=== PATIENT | male | born 1995 | race Hispanic/Latino ===

== ENCOUNTER 2021-09-02 19:45 | Emergency (ER) | payer SELFPAY ==
[~2021-09-02] VITALS: Ht 154.9 cm; Wt 72.0 kg
[2021-09-02] MEDS ORDERED: HUMALOG100 UNIT/M SC (20:09)
[2021-09-02] MEDS ORDERED: NOVOLIN N100 UNIT (20:09)
[2021-09-02 20:37] LABS: HEMATOCRIT 43.4 % (39.0-50.0); HEMOGLOBIN 15.1 g/dl (14.0-18.0); MEAN CELL VOLUME 90.6 fL CALC (80.0-100.0); MEAN CORPUSCULAR HGB 31.5 pG CALC (26.0-32.0); MEAN CORPUSCULAR HGB CONC 34.8 g/dL CAL (32.0-36.0); NEUT# 2.55 thou/uL (1.82-7.42); RED BLOOD COUNT 4.79 mill/uL (4.70-6.10); RED CELL DISTRI WIDTH 11.7 % (11.5-15.5)
[2021-09-02 20:38] LABS: URINE BILIRUBIN - DIPSTICK NEGATIVE (NEGATIVE); URINE BLOOD DIPSTICK NEGATIVE (NEGATIVE); URINE COLOR YELLOW; URINE GLUCOSE - DIPSTICK 250 mg/dL (NEGATIVE); URINE KETONE NEGATIVE (NEGATIVE); URINE LEUK ESTERASE NEGATIVE (NEGATIVE); URINE PROTEIN - DIPSTICK NEGATIVE (NEG-TRACE); URINE SPECIFIC GRAVITY <=1.005; URINE UROBILINOGEN - DIPSTICK 0.2 E.U./dL (0.2)
[2021-09-02 20:42] LABS: URINE NITRITE - DIPSTICK NEGATIVE (Negative)
[2021-09-02 20:53] LABS: ALKALINE PHOSPHATASE 126 u/l (38-126); ANION GAP 11 (6-22 (CALC)); BUN 17 mg/dL (9-20); BUN/CREATININE RATIO 26 (12-20 (CALC)); CARBON DIOXIDE 34 mmol/l (22-30); CHLORIDE 93 mmol/l (95-108); CREATININE 0.7 mg/dL (0.7-1.3); GFR > 60 ML/MIN (>=60 (CALC)); GFR FOR AFR.AMER. > 60 ML/MIN (>=60 (CALC)); POTASSIUM 3.6 mmol/l (3.5-5.1); SGOT/AST 49 u/l (17-59); SODIUM 134 mmol/l (137-146); TOTAL PROTEIN 6.9 g/dL (6.3-8.2)
[2021-09-02] MEDS ORDERED: NAPROXEN500 MG PO (21:15)
[2021-09-02 21:35] VITALS: BP 120/81
== END 2021-09-02 21:40 | disposition home or self-care (01) | DRG 74 ==
LOC: ED 19:45
PROVIDERS: Emergency Medicine
DX: E11.42 Type 2 diabetes mellitus with diabetic polyneuropathy (principal); Z79.4 Long term (current) use of insulin

== ENCOUNTER 2021-09-14 20:05 | Emergency (ER) | payer SELFPAY ==
[~2021-09-14] VITALS: Ht 154.9 cm; Wt 65.0 kg
[~2021-09-14 20:05] MED LIST: HUMALOG100 UNIT/M SC; NAPROXEN500 MG PO; NOVOLIN N100 UNIT
[2021-09-14 21:42] LABS: HEMATOCRIT 42.1 % (39.0-50.0); HEMOGLOBIN 14.8 g/dl (14.0-18.0); MEAN CELL VOLUME 87.2 fL CALC (80.0-100.0); MEAN CORPUSCULAR HGB 30.6 pG CALC (26.0-32.0); MEAN CORPUSCULAR HGB CONC 35.2 g/dL CAL (32.0-36.0); NEUT# 2.62 thou/uL (1.82-7.42); RED BLOOD COUNT 4.83 mill/uL (4.70-6.10); RED CELL DISTRI WIDTH 11.8 % (11.5-15.5)
[2021-09-14 22:13] LABS: ALBUMIN 3.8 g/dL (3.2-5.0); ALKALINE PHOSPHATASE 120 u/l (38-126); ANION GAP 8 (6-22 (CALC)); BILIRUBIN, TOTAL 0.7 mg/dL (0.0-1.4); BUN 26 mg/dL (9-20); BUN/CREATININE RATIO 39 (12-20 (CALC)); CARBON DIOXIDE 35 mmol/l (22-30); CHLORIDE 95 mmol/l (95-108); CREATININE 0.7 mg/dL (0.7-1.3); GFR > 60 ML/MIN (>=60 (CALC)); GFR FOR AFR.AMER. > 60 ML/MIN (>=60 (CALC)); LIPASE 149 u/l (23-300); POTASSIUM 3.4 mmol/l (3.5-5.1); SGOT/AST 73 u/l (17-59); SODIUM 136 mmol/l (137-146); TOTAL PROTEIN 6.7 g/dL (6.3-8.2)
[2021-09-14 22:22] LABS: MAGNESIUM 0.8 mg/dL (1.6-2.3)
[2021-09-14 22:43] LABS: TSH, 3RD GENERATION 1.85 uIU/mL (0.47 - 4.68)
[2021-09-15] MEDS ORDERED: NEURONTIN300 MG PO (01:38)
[2021-09-15] MEDS ORDERED: MAGNESIUM OXID500 M1 PO (01:38)
[2021-09-15 01:43] VITALS: BP 122/80
== END 2021-09-15 02:21 | disposition home or self-care (01) | DRG 74 ==
LOC: ED 20:05
PROVIDERS: Emergency Medicine
DX: E11.42 Type 2 diabetes mellitus with diabetic polyneuropathy (principal); E83.42 Hypomagnesemia; Z79.4 Long term (current) use of insulin; Z91.14 Patient's other noncompliance with medication regimen
CPT/HCPCS: J3475

== ENCOUNTER 2021-09-24 21:09 | Emergency (ER) | payer SELFPAY ==
[~2021-09-24 21:09] MED LIST changes: +MAGNESIUM OXID500 M1 PO; +NEURONTIN300 MG PO
[2021-09-24 22:09] LABS: ANION GAP 9 (6-22 (CALC)); BUN 23 mg/dL (9-20); BUN/CREATININE RATIO 29 (12-20 (CALC)); CARBON DIOXIDE 33 mmol/l (22-30); CHLORIDE 97 mmol/l (95-108); CREATININE 0.8 mg/dL (0.7-1.3); GFR > 60 ML/MIN (>=60 (CALC)); GFR FOR AFR.AMER. > 60 ML/MIN (>=60 (CALC)); POTASSIUM 3.8 mmol/l (3.5-5.1); SODIUM 136 mmol/l (137-146)
[2021-09-24] MEDS ORDERED: HUMALOG100 UNIT/M SC (22:42)
[2021-09-24 22:56] VITALS: BP 140/84
== END 2021-09-24 22:56 | disposition home or self-care (01) | DRG 639 ==
LOC: ED 21:09
PROVIDERS: Family Medicine
DX: E11.65 Type 2 diabetes mellitus with hyperglycemia (principal); E83.42 Hypomagnesemia; E11.40 Type 2 diabetes mellitus with diabetic neuropathy, unspecified; T38.3X6A Underdosing of insulin and oral hypoglycemic [antidiabetic] drugs, initial encounter; Z79.4 Long term (current) use of insulin; Z91.128 Patient's intentional underdosing of medication regimen for other reason

== ENCOUNTER 2021-10-04 19:31 | Emergency (ER) | payer SELFPAY ==
[~2021-10-04] VITALS: Ht 154.9 cm; Wt 68.0 kg
[2021-10-04] MEDS ORDERED: NEURONTIN300 MG PO (22:11)
[2021-10-04] MEDS ORDERED: ELAVIL25 M1 PO (22:11)
[2021-10-04 22:42] VITALS: BP 125/89
== END 2021-10-04 22:55 | disposition home or self-care (01) | DRG 74 ==
LOC: ED 19:31
DX: E11.42 Type 2 diabetes mellitus with diabetic polyneuropathy (principal); Z79.4 Long term (current) use of insulin

== ENCOUNTER 2021-10-11 00:32 | Emergency (ER) | payer SELFPAY ==
[~2021-10-11] VITALS: Ht 167.6 cm; Wt 74.0 kg
[~2021-10-11 00:32] MED LIST changes: +ELAVIL25 M1 PO
[2021-10-11 01:54] VITALS: BP 130/96
== END 2021-10-11 02:00 | disposition home or self-care (01) | DRG 74 ==
LOC: ED 00:32
DX: E11.42 Type 2 diabetes mellitus with diabetic polyneuropathy (principal); Z79.4 Long term (current) use of insulin

== ENCOUNTER 2022-09-03 23:07 | Emergency (ER) | payer SELFPAY ==
[~2022-09-03] VITALS: Ht 167.6 cm; Wt 75.0 kg
[2022-09-03 23:59] LABS: BASO% 0.5 % (0-3); EOS% 2.7 % (0-8); HEMATOCRIT 44.8 % (39.0-50.0); IMMATURE GRANULOCYTES 0.3 % (0.0-5.0); LYMPH% 39.8 % (15-41); MEAN CELL VOLUME 84.8 fL CALC (80.0-100.0); MEAN CORPUSCULAR HGB CONC 37.7 g/dL CAL (32.0-36.0); MONO% 8.3 % (2-13); NEUT# 2.85 thou/uL (1.82-7.42); NEUT% 48.4 % (42-76); RED BLOOD COUNT 5.28 mill/uL (4.70-6.10); RED CELL DISTRI WIDTH 12.3 % (11.5-15.5)
[2022-09-04 00:07] LABS: HEMOGLOBIN 16.9 g/dl (14.0-18.0)
[2022-09-04 00:11] LABS: ALKALINE PHOSPHATASE 151 u/l (38-126); BILIRUBIN, TOTAL 0.7 mg/dL (0.0-1.4); BUN 21 mg/dL (9-20); BUN/CREATININE RATIO 21 (12-20 (CALC)); CARBON DIOXIDE 35 mmol/l (22-30); GFR FOR AFR.AMER. > 60 ML/MIN (>=60 (CALC)); GFR OTHER RACES > 60 ML/MIN (>=60 (CALC)); POTASSIUM 3.5 mmol/l (3.5-5.1); SGOT/AST 49 u/l (17-59); SODIUM 131 mmol/l (137-146); TOTAL PROTEIN 7.9 g/dL (6.3-8.2)
[2022-09-04 00:22] LABS: ALBUMIN 4.8 g/dL (3.2-5.0); ANION GAP 15 (6-22 (CALC)); CHLORIDE 85 mmol/l (95-108)
[2022-09-04] MEDS ORDERED: MAGNESIUM200 MG PO (01:57)
[2022-09-04 02:10] VITALS: BP 113/65
== END 2022-09-04 03:45 | disposition home or self-care (01) | DRG 641 ==
LOC: ED 23:07
PROVIDERS: Emergency Medicine
DX: E83.42 Hypomagnesemia (principal); E10.65 Type 1 diabetes mellitus with hyperglycemia; Z79.85 Long-term (current) use of injectable non-insulin antidiabetic drugs
CPT/HCPCS: J3475

== ENCOUNTER 2023-09-10 19:56 | Emergency (ER) | payer SELFPAY ==
[~2023-09-10] VITALS: Ht 167.6 cm; Wt 77.0 kg
[~2023-09-10 19:56] MED LIST changes: +MAGNESIUM200 MG PO
[2023-09-10] MEDS ORDERED: TAM75CAP PO (21:34)
[2023-09-10 21:41] VITALS: BP 108/74
== END 2023-09-10 21:41 | disposition home or self-care (01) | DRG 153 ==
LOC: ED 19:56
DX: J11.1 Influenza due to unidentified influenza virus with other respiratory manifestations (principal); E11.9 Type 2 diabetes mellitus without complications; Z79.4 Long term (current) use of insulin; Z20.822 Contact with and (suspected) exposure to COVID-19

== ENCOUNTER 2024-10-12 17:13 | Emergency (ER) | payer SELFPAY ==
[~2024-10-12] VITALS: Ht 167.6 cm; Wt 75.0 kg
[~2024-10-12 17:13] MED LIST changes: +TAM75CAP PO
[2024-10-12] MEDS ORDERED: LACTATED RINGER'S 1,000 ML IV ONE ×2 (17:30)
[2024-10-12 17:47] LABS: BASO% 0.3 % (0-3); EOS% 2.3 % (0-8); HEMATOCRIT 39.2 % (39.0-50.0); IMMATURE GRANULOCYTES 0.2 % (0.0-5.0); MEAN CELL VOLUME 84.1 fL CALC (80.0-100.0); MEAN CORPUSCULAR HGB 30.5 pG CALC (26.0-32.0); MEAN CORPUSCULAR HGB CONC 36.2 g/dL CAL (32.0-36.0); MONO% 10.1 % (2-13); NEUT# 3.29 thou/uL (1.82-7.42); NEUT% 57.1 % (42-76); RED BLOOD COUNT 4.66 mill/uL (4.70-6.10); RED CELL DISTRI WIDTH 12.1 % (11.5-15.5)
[2024-10-12 17:50] LABS: HEMOGLOBIN 14.2 g/dl (14.0-18.0)
[2024-10-12 18:01] LABS: ALBUMIN 4.4 g/dL (3.2-5.0); BILIRUBIN, TOTAL 0.8 mg/dL (0.2-1.3); POTASSIUM 4.1 mmol/l (3.5-5.1); TOTAL PROTEIN 7.5 g/dL (6.3-8.2)
[2024-10-12 18:02] VITALS: BP 113/82
[2024-10-12] MEDS ORDERED: INSULIN REGULAR (HUMAN) 100 UNIT/ML INJ IV ONE ×2 (18:15→19:35)
[2024-10-12 18:30] VITALS: BP 103/70
[2024-10-12 19:00] VITALS: BP 102/77
[2024-10-12 19:30] VITALS: BP 109/86
[2024-10-12] MEDS ORDERED: SODIUM CHLORIDE 0.9% 1,000 ML IV ONE (19:35)
[2024-10-12] MEDS ORDERED: HUMALOG KW75 MG/25 K SC ×2 (19:53→20:05)
[2024-10-12 21:50] VITALS: BP 109/86
== END 2024-10-12 21:50 | disposition home or self-care (01) | DRG 639 ==
LOC: ED 17:13
PROVIDERS: Nurse Practitioner
DX: E11.65 Type 2 diabetes mellitus with hyperglycemia (principal); T38.3X6A Underdosing of insulin and oral hypoglycemic [antidiabetic] drugs, initial encounter; Z91.128 Patient's intentional underdosing of medication regimen for other reason; Z79.4 Long term (current) use of insulin

== ENCOUNTER 2024-11-07 17:03 | Emergency (ER) | payer SELFPAY ==
[2024-11-07] VITALS (10 sets, daily range): BP systolic 90–106; BP diastolic 60–73
[~2024-11-07] VITALS: Ht 167.6 cm; Wt 72.0 kg
[~2024-11-07 17:03] MED LIST changes: +HUMALOG KW75 MG/25 K SC
[2024-11-07] MEDS ORDERED: HUMALOG KW75 MG/25 K SC (17:15)
[2024-11-07] MEDS ORDERED: HYDROXYZ HCL25 MG PO (17:15)
[2024-11-07] MEDS ORDERED: SODIUM CHLORIDE 0.9% 1,000 ML IV STA (17:22)
[2024-11-07] MEDS ORDERED: INSULIN REGULAR (HUMAN) 100 UNIT/ML INJ IV STA (17:22)
[2024-11-07 17:59] LABS: BASO% 0.4 % (0-3); EOS% 3.1 % (0-8); HEMATOCRIT 41.1 % (39.0-50.0); HEMOGLOBIN 13.8 g/dl (14.0-18.0); LYMPH% 35.3 % (15-41); MEAN CELL VOLUME 90.5 fL CALC (80.0-100.0); MEAN CORPUSCULAR HGB 30.4 pG CALC (26.0-32.0); MEAN CORPUSCULAR HGB CONC 33.6 g/dL CAL (32.0-36.0); MONO% 9.2 % (2-13); NEUT# 2.87 thou/uL (1.82-7.42); RED BLOOD COUNT 4.54 mill/uL (4.70-6.10); RED CELL DISTRI WIDTH 12.2 % (11.5-15.5)
[2024-11-07 18:25] LABS: ALBUMIN 3.9 g/dL (3.2-5.0); BILIRUBIN, TOTAL 0.7 mg/dL (0.2-1.3); CREATININE 0.9 mg/dL (0.7-1.3); POTASSIUM 4.1 mmol/l (3.5-5.1); TOTAL PROTEIN 7.1 g/dL (6.3-8.2)
[2024-11-07] MEDS ORDERED: INSULIN LISPRO 100 UNITS/ML ML IV ONE (18:35)
[2024-11-07] MEDS ORDERED: INSULIN REGULAR (HUMAN) 100 UNIT/ML INJ IV ONE (18:45)
== END 2024-11-07 19:24 | disposition home or self-care (01) | DRG 607 ==
LOC: ED 17:03
PROVIDERS: Nurse Practitioner Family
DX: R21 Rash and other nonspecific skin eruption (principal); E11.65 Type 2 diabetes mellitus with hyperglycemia; T38.3X6A Underdosing of insulin and oral hypoglycemic [antidiabetic] drugs, initial encounter; Z91.128 Patient's intentional underdosing of medication regimen for other reason; Z79.4 Long term (current) use of insulin; Z20.822 Contact with and (suspected) exposure to COVID-19
CPT/HCPCS: J1815